=== PATIENT | male | born 1950 | race Caucasian/White ===

== ENCOUNTER 2018-11-10 12:22 | Inpatient (IN) ==
[2018-11-10] MEDS ORDERED: ONDANSETRON HCL/PF 2 MG/ML VIAL IV ONE ×2 (12:33→13:58)
--- NOTE | 2018-11-10 12:41 | ERNOTE ---
Abdominal HPI - General Chief Complaint: Abdominal Pain Time Seen by Provider: 11/10/18 12:24 Source: patient Exam Limitations: no limitations - Immun/Allergies/Home Medications Immunizatons: IMMUNIZATION HX Immunizations Up to Date Yes History of Influenza Vaccine No Allergies/Adverse Reactions: Allergies No Known Allergies Allergy (Verified 11/10/18 16:42) Home Medications: HOME MEDICATIONS Ascorbic Acid [Vitamin C] 1,000 mg PO DAILY 11/10/18 [Last Taken Unknown] Bee Pollen 550 mg PO DAILY 11/10/18 [Last Taken Unknown] - History of Present Illness Narrative: Patient started with have periumbilical abdominal pain about 9 hours ago, he vomited multiple times and is still nauseated, no diarrhea, few small BMs only. Last night at the [employer] game he had a hot dog, peanuts and later a can of soup. His only significant medical problem in the past was what sound like perforated diverticulitis treated with surgery 12 years ago. He had a colonoscopy 4? years ago which was normal per patient Date (Duration): 11/10/18 Time (Timing): 03:00 Timing: constant Quality: moderate, other - 'sore' Activities at Onset: none Modifying Factors - (Worsens): Absent: breathing, coughing, movement Associated Symptoms: Present: nausea, vomiting. Absent: headache, diarrhea- gross blood, fever/chills, heartburn Prior Abdominal Problems: Present: other Prior Treatment: Absent: recently seen, currently on antibiotics Review of Systems - Review of Systems Constitutional: Absent: recent illness, fever ENT: Absent: nose congestion, sore throat Respiratory: Absent: shortness of breath Cardiology: Absent: chest pain Gastrointestinal/Abdominal: Present: See HPI, nausea, vomiting, abdominal pain. Absent: diarrhea Genitourinary: Absent: frequency, dysuria Musculoskeletal: Absent: back pain Neurological: Absent: headache Medical History (Last Reviewed 11/10/18 @ 12:38 by Arelis Valentine MD) Hx of diverticulitis of colon Surgical History: Surgical History (Last Reviewed 11/10/18 @ 12:39 by Arelis Valentine MD) History of dental surgery Hx of abdominal surgery H/O arthroscopy of left knee Family History: Family History (Last Updated 11/10/18 @ 16:42 by Nat Allen RN) Mother Colon cancer Father Colon cancer Social History: Preferred Language Thai Do you have any restorationist or No cultural preference? Do you dip or chew tobacco hx of tobacco use Alcohol Use rarely Drug Use none No Social History Section defined Physical Exam - Physical Exam General Appearance: Present: wd/wn, alert, mild distress Respiratory: Present: no respiratory distress, normal breath sounds, no accessory muscle use, lungs clear Cardiovascular/Chest: Present: regular rate, rhythm, no murmur Gastrointestinal/Abdominal: Present: soft, tenderness - diffuse mild, max left mid to lower abdomen, abnormal bowel sounds - decreased, distended Neurological Exam: Present: alert, oriented, normal mood/affect Skin Exam: Present: normal color, warm/dry Progress - Results and Orders Patient's Lab Results:: I have reviewed the patient's lab results. - Vital Signs Patient's Vital Signs:: I have reviewed the patient's vital signs. Vital Signs: Vital Signs 11/10/18 12:25 Temperature 36.5 C Pulse Rate 71 Respiratory Rate 16 O2 Sat by Pulse Oximetry 99 - X-Ray X-Ray #1 X-Ray: abdomen - bowl obstruction Interpretation: Interp. by me - CT/Ultrasound CT/Ultrasound Narrative: CT abdomen: small bowel obstruction, see report - Progress/Reassessment Chief Complaint: Abdominal Pain Progress Note-Subjective: 11/10/18 13:26 discussed test results with patient, Xray consistent with obstruction, will get CT patient feels better after zofran, denies need for more medication 11/10/18 15:[address] finding with staff from [facility] 11/10/18 15:30 updated patient on findings and plan 11/10/18 15:33 discussed with jacquelin Owusu to admit for observation Departure Clinical Impression: Small bowel obstruction, Hyponatremia - Departure Disposition: Still a patient Condition: Stable
[2018-11-10 12:47] LABS: Hemoglobin 15.3 gm/dL (13.5-18.0); Mean Corpuscular Hemoglobin 30.6 pg (27-31); Mean Platelet Volume 8.4 fl (8-11.3); Neutrophil # 7.4 K/mm3 (1.3-6.0); Neutrophil % 90.6 % (42-75.0); Platelet Count 256 K/mm3 (150-450); Red Cell Distribution Width 12.1 % (11.5-14.0); White Blood Count 8.1 K/mm3 (4.0-10.5)
[2018-11-10 13:19] LABS: Urine Appearance Clear (CLEAR); Urine Color Yellow
[2018-11-10 13:20] LABS: Urine Amorphous Sediment Moderate - 2+ (NONE-FEW); Urine Bacteria None Seen; Urine Bilirubin Negative (NEGATIVE); Urine Blood Negative /ul (NEGATIVE); Urine Ketone 15 mg/dL (NEGATIVE); Urine Nitrite Negative (NEGATIVE); Urine Protein Negative (NEGATIVE); Urine RBC None Seen /hpf (0-5); Urine Specific Gravity 1.015 SP.GR. (1.005-1.030); Urine Urobilinogen Normal (NORMAL); Urine WBC None Seen /hpf (0-5); Urine pH 7.5 pH (5.0-7.0)
[2018-11-10] MEDS ORDERED: DIATRIZOATE MEGLUMINE, SODIUM 30 ML BTL PO ONE (13:24)
[2018-11-10 13:25] LABS: Albumin * 4.3 gm/dl (3.4-5.0); BUN/Creatinine Ratio 19.2 (9.0-21.6); Bilirubin, Total 1.2 mg/dL (0.0-1.1); Ca. Corrected For Albumin 8.9 mg/dL (8.4-10.2); Calcium * 9.5 mg/dL (7.9-10.9); Total Protein 8.1 gm/dL (6.2-8.2)
[2018-11-10] MEDS ORDERED: NORMAL SALINE 1,000 ML IV ONE (13:29)
[2018-11-10] MEDS ORDERED: PROCHLORPERAZINE EDISYLATE 5 MG/ML VIAL IV ONE (14:47)
[2018-11-10] MEDS ORDERED: KETOROLAC TROMETHAMINE 30 MG/ML VIAL IV ONE (15:56)
[2018-11-10] MEDS ORDERED: ONDANSETRON HCL/PF 2 MG/ML VIAL IV PRN (15:56)
[2018-11-10] MEDS: NORMAL SALINE 1,000 ML IV PRN (18:00)
--- NOTE | 2018-11-10 18:03 | HP ---
Chief Complaint - Chief Complaint Date of Service: 11/10/18 Time of Service: 18:03 Chief Complaint: abdominal pain History of Present Illness: Patient without ongoing medical issues presented to the ED after developing abdominal pain overnight. The pain is periumbilic, and similar to when he was diagnosed with diverticulitis several years ago, requiring surgery. He has been having some nausea, and felt like he "needed to get something out" and was trying to make himself vomit. Imaging done in the ED showed an SBO, and NG tube was placed to intermittent suction. At the time of my exam, he reports feeling somewhat better than he did on admission. He denies CP, SOB, diarrhea, dysuria, skin ulcers. He does not take prescribed medications. Medical History (Last Reviewed 11/10/18 @ 16:42 by Nat Allen RN) Hx of diverticulitis of colon Surgical History: Surgical History (Last Reviewed 11/10/18 @ 16:42 by Nat Allen RN) History of dental surgery Hx of abdominal surgery H/O arthroscopy of left knee Family History: Family History (Last Updated 11/10/18 @ 16:42 by Nat Allen RN) Mother Colon cancer Father Colon cancer Social History: Patient Lives/Resources Home Utilized Preferred Language Gibraltarian Do you have any anabaptism or No cultural preference? Smoking Status Current every day smoker Have you smoked in the past 12 No months Do you dip or chew tobacco No Alcohol Use rarely Drug Use none No Social History Section defined Review Of Systems (GEN) - Review of Systems Generalized/Overall Review: Absent: Fever Respiratory: Present: Shortness of Breath Cardiac: Present: Chest Pain, Edema Abdominal: Present: Nausea, Diarrhea. Absent: Constipation Genitourinary: Present: Dysuria Skin: Absent: Lesions Immunizations: IMMUNIZATION HX Immunizations Up to Date Yes History of Influenza Vaccine No Allergies/Adverse Reactions: Allergies Allergy/AdvReac Type Severity Reaction Status Date / Time No Known Allergies Allergy Verified 11/10/18 16:42 Home Medications: HOME MEDICATIONS Ascorbic Acid [Vitamin C] 1,000 mg PO DAILY 11/10/18 [Last Taken Unknown] Bee Pollen 550 mg PO DAILY 11/10/18 [Last Taken Unknown] Exam - Exam Vital Signs: Vital Signs - Last Taken Temp 37.8 C 11/10/18 16:34 Pulse 73 11/10/18 16:34 Resp 14 11/10/18 16:34 BP 182/94 H 11/10/18 16:34 Pulse Ox 95 11/10/18 16:34 Constitutional: Present: Alert, Oriented x3, Cooperative, No distress ENT Exam: Present: other - NG tube in place Respiratory: Present: normal breath sounds Cardiovascular/Chest: Present: regular rate, rhythm Abdomen: Present: distended, high pitched bowel sounds - on left, hypoactive - on right Extremity: Absent: lower extremity edema Eye contact: Present: cooperative, good eye contact Diagnostic Studies: Abnormal Lab Results 11/10/18 11/10/18 11/10/18 Range/Units 12:40 12:40 12:56 Neutrophils % 90.6 H (42-75.0) % Lymphocytes % 4.7 L (20-51) % Neutrophils # 7.4 H (1.3-6.0) K/mm3 Lymphocytes # 0.38 L (1.5-3.5) k/mm3 Sodium 128 L (132-142) mmol/L Plasma Sodium 129 L (130-142) mmol/L Chloride 92 L (97-106) mmol/L Random Glucose 149 H (70-110) mg/dL Total Bilirubin 1.2 H (0.0-1.1) mg/dL Alkaline Phosphatase 36 L (50-170) U/L Amorphous Sediment Moderate - 2+ H (NONE-FEW) Laboratory Results WBC 8.1 K/mm3 (4.0-10.5) 11/10/18 12:40 RBC 5.00 M/mm3 (4.7-6.0) 11/10/18 12:40 Hgb 15.3 gm/dL (13.5-18.0) 11/10/18 12:40 Hct 45.0 % (42.0-52.0) 11/10/18 12:40 MCV 90.0 fl (78-100) 11/10/18 12:40 MCH 30.6 pg (27-31) 11/10/18 12:40 MCHC 34.0 g/dl (32-36) 11/10/18 12:40 RDW 12.1 % (11.5-14.0) 11/10/18 12:40 Plt Count 256 K/mm3 (150-450) 11/10/18 12:40 MPV 8.4 fl (8-11.3) 11/10/18 12:40 Immature Gran % (Auto) 0.20 % (0.001-0.429) 11/10/18 12:40 Immature Gran # (Auto) 0.02 K/mm3 (0.000-0.0310) 11/10/18 12:40 Neutrophils % 90.6 % (42-75.0) H 11/10/18 12:40 Lymphocytes % 4.7 % (20-51) L 11/10/18 12:40 Monocytes % 3.9 % (0.0-9) 11/10/18 12:40 Eosinophils % 0.1 % (0.0-3.0) 11/10/18 12:40 Basophils % 0.5 % (0.0-1.0) 11/10/18 12:40 Nucleated RBC % 0.0 k/mm3 (0-1) 11/10/18 12:40 Neutrophils # 7.4 K/mm3 (1.3-6.0) H 11/10/18 12:40 Lymphocytes # 0.38 k/mm3 (1.5-3.5) L 11/10/18 12:40 Monocytes # 0.3 k/mm3 (0.0-1.0) 11/10/18 12:40 Eosinophils # 0.0 k/mm3 (0.0-0.7) 11/10/18 12:40 Absolute Basophils 0.0 k/mm3 (0.0-0.1) 11/10/18 12:40 Sodium 128 mmol/L (132-142) L 11/10/18 12:40 Plasma Sodium 129 mmol/L (130-142) L 11/10/18 12:40 Potassium 4.0 mmol/L (3.4-4.6) 11/10/18 12:40 Chloride 92 mmol/L (97-106) L 11/10/18 12:40 Carbon Dioxide 27.0 mmol/L (24-32.6) 11/10/18 12:40 Anion Gap 13.0 mmol/L (6.8-13.8) 11/10/18 12:40 BUN 15 mg/dL (6-23) 11/10/18 12:40 Creatinine 0.78 mg/dL (0.4-1.4) 11/10/18 12:40 Est GFR (Non-Af Amer) 106 mL/min (60-130) 11/10/18 12:40 BUN/Creatinine Ratio 19.2 (9.0-21.6) 11/10/18 12:40 Random Glucose 149 mg/dL (70-110) H 11/10/18 12:40 Calcium 9.5 mg/dL (7.9-10.9) 11/10/18 12:40 Calcium Adj for Albumin 8.9 mg/dL (8.4-10.2) 11/10/18 12:40 Total Bilirubin 1.2 mg/dL (0.0-1.1) H 11/10/18 12:40 AST 18 U/L (0-48) 11/10/18 12:40 ALT 24 U/L (19-67) 11/10/18 12:40 Alkaline Phosphatase 36 U/L (50-170) L 11/10/18 12:40 Total Protein 8.1 gm/dL (6.2-8.2) 11/10/18 12:40 Albumin 4.3 gm/dl (3.4-5.0) 11/10/18 12:40 Amylase 77 U/L (25-115) 11/10/18 12:40 Lipase 111 U/L (73-393) 11/10/18 12:40 Urine Color Yellow 11/10/18 12:56 Urine Appearance Clear (CLEAR) 11/10/18 12:56 Urine pH 7.5 pH (5.0-7.0) 11/10/18 12:56 Ur Specific Carpenter 1.015 SP.GR. (1.005-1.030) 11/10/18 12:56 Urine Protein Negative mg/dL (NEGATIVE) 11/10/18 12:56 Urine Glucose (UA) Negative mg/dL (NEGATIVE) 11/10/18 12:56 Urine Ketones 15 mg/dL (NEGATIVE) 11/10/18 12:56 Urine Blood Negative /ul (NEGATIVE) 11/10/18 12:56 Urine Nitrate Negative (NEGATIVE) 11/10/18 12:56 Urine Bilirubin Negative mg/dl (NEGATIVE) 11/10/18 12:56 Urine Urobilinogen Normal EU/dl (NORMAL) 11/10/18 12:56 Ur Leukocyte Esterase Negative /ul (NEGATIVE) 11/10/18 12:56 Urine RBC None seen /hpf (0-5) 11/10/18 12:56 Urine WBC None seen /hpf (0-5) 11/10/18 12:56 Ur Epithelial Cells 0-5 /hpf (0-5) 11/10/18 12:56 Amorphous Sediment Moderate - 2+ (NONE-FEW) H 11/10/18 12:56 Urine Bacteria None seen (NONE) 11/10/18 12:56 Urine Culture Comments No culture indicated 11/10/18 12:56 Assessment/Plan - Assessment/Plan (1) Small bowel obstruction Assessment: On CT, transition point is in the pelvis/RLQ. No massess seen. SBO likely secondary to adhesions from remote surgery. NG tube placed in the ED, to intermittent suction. He reports feeling slightly better than on arrival to the ED. If he does not have significant improvement by the morning or worsens, will obtain lactic aced level and consult surgery. Heart rate and respiratory rate are normal, but his BP is elevated. He does not have signs of an acute abdomen currently. Will remain NPO for bowel rest. He reported feeling uncomfortable thirsty, and ice chips prn have been ordered. Continue 125 cc/hr NS. until he can tolerate clear liquids. Problem: Acute (2) Hyponatremia Assessment: Sodium slightly low at 128. Will continue fluids as long as he is NPO, and will recheck BMP in the morning. Problem: Acute (3) Elevated BP without diagnosis of hypertension Assessment: He does not have HTN at baseline, but his BP is elevated currently. He asked for something to help sleep early in the evening, so he may have an element of anxiety regarding his clinical condition, which would elevated his BP. Will give 20 mg IV labetalol for persistent BP greater than 180/100, and 1 mg ativan tonight if needed. Problem: Acute
[2018-11-10] MEDS: HYDROmorphone HCL 1 MG/ML DISP.SYRIN IV PRN (20:21)
[2018-11-10] MEDS ORDERED: LORazepam 2 MG/ML DISP.SYRIN IV ONE (21:17)
[2018-11-10] MEDS ORDERED: LORazepam 2 MG/ML DISP.SYRIN ONE (22:28)
[2018-11-11] MEDS: NORMAL SALINE 1,000 ML IV PRN ×3 (01:48→18:02)
[2018-11-11] MEDS: KETOROLAC TROMETHAMINE 15 MG/ML VIAL IV PRN ×3 (04:22→23:06)
[2018-11-11] MEDS ORDERED: ACETAMINOPHEN 325 MG TABLET PO PRN (06:46)
[2018-11-11 06:47] LABS: Anion Gap 13.5 mmol/L (6.8-13.8); BUN/Creatinine Ratio 24.4 (9.0-21.6); Calcium * 8.8 mg/dL (7.9-10.9); Carbon Dioxide 27.3 mmol/L (24-32.6); Estimated Creat Clear 84.5; Potassium 3.8 mmol/L (3.4-4.6)
--- NOTE | 2018-11-11 12:48 | PN ---
Subjective - Date and Time Seen Date: 11/11/18 Time: 12:42 Subjective Narrative: Bhavesh reports feeling better. He denies abdominal pain and has improvement of appetite. No nausea or vomiting. He has NG in place on suction with dark green fluid in canister. He denies bowel movement or gas today. He reports that he had two bowel movements yesterday prior to coming to the ER. Objective - Vitals Vitals: Last Vital Signs Temp 37.0 C 11/11/18 10:25 Pulse 74 11/11/18 10:25 Resp 12 11/11/18 10:25 BP 169/85 H 11/11/18 10:25 Pulse Ox 95 11/11/18 10:25 - Abnormal Lab Findings Abnormal Lab Findings: Abnormal Lab Results 11/10/18 11/10/18 11/10/18 Range/Units 12:40 12:40 12:56 Neutrophils % 90.6 H (42-75.0) % Lymphocytes % 4.7 L (20-51) % Neutrophils # 7.4 H (1.3-6.0) K/mm3 Lymphocytes # 0.38 L (1.5-3.5) k/mm3 Sodium 128 L (132-142) mmol/L Plasma Sodium 129 L (130-142) mmol/L Chloride 92 L (97-106) mmol/L BUN/Creatinine Ratio (9.0-21.6) Random Glucose 149 H (70-110) mg/dL Total Bilirubin 1.2 H (0.0-1.1) mg/dL Alkaline Phosphatase 36 L (50-170) U/L Amorphous Sediment Moderate - 2+ H (NONE-FEW) 11/11/18 Range/Units 06:30 Neutrophils % (42-75.0) % Lymphocytes % (20-51) % Neutrophils # (1.3-6.0) K/mm3 Lymphocytes # (1.5-3.5) k/mm3 Sodium 130 L (132-142) mmol/L Plasma Sodium (130-142) mmol/L Chloride 93 L (97-106) mmol/L BUN/Creatinine Ratio 24.4 H (9.0-21.6) Random Glucose 145 H (70-110) mg/dL Total Bilirubin (0.0-1.1) mg/dL Alkaline Phosphatase (50-170) U/L Amorphous Sediment (NONE-FEW) - Exam Constitutional: Present: Alert, Oriented x3, Cooperative Respiratory: Present: lungs clear, normal breath sounds Cardiovascular/Chest: Present: regular rate, rhythm, no murmur Abdomen: Present: soft, nontender, nondistended, no rebound tenderness, no hepatospenomegaly, hypoactive Skin Exam: Present: normal color, warm/dry, no cyanosis Assessment/Plan Plan Narrative: Bhavesh is a 68 yo male with: 1) Small Bowel Obstruction with history of diverticular perforation with surgical peritoneal wash out about 10 years ago. His symptoms started acutely yesterday and appear improved with NG tube which is currently on suction. Will repeat abdominal xray today. He denies stool or flatus so I am hesitant to clamp his NG tube now. Will decide on this based on abdominal xray findings. If no evidence of bowel obstruction on xray will consider clamping tube and trying a l iquid diet this evening. If small bowel obstruction persists on xray will plan to remain on suction and re-evaluate tomorrow morning. No need for surgical intervention at this time. Will consult surgery if needed. 2) Hypertension - No prior history, blood pressures improving. This may be a stress reaction from acute illness. Will monitor. 3) Hyponatremia - Resolved with IV fluids. Continue IV fluids while he is NPO. - Problems/Diagnosis (1) Small bowel obstruction Problem: Acute (2) Hyponatremia Problem: Acute (3) Elevated BP without diagnosis of hypertension Problem: Acute
[2018-11-11] MEDS: LOSARTAN POTASSIUM 50 MG TABLET PO SCH (17:04)
[2018-11-12] MEDS: NORMAL SALINE 1,000 ML IV PRN ×3 (02:31→20:56)
[2018-11-12] MEDS: HYDROmorphone HCL 1 MG/ML DISP.SYRIN IV PRN ×3 (02:34→23:19)
[2018-11-12] MEDS: LOSARTAN POTASSIUM 50 MG TABLET PO SCH (08:18)
[2018-11-12] MEDS ORDERED: CLONIDINE HCL 0.1 MG TABLET PO ONE (14:37)
[2018-11-12] MEDS: HYDROCHLOROTHIAZIDE 25 MG TABLET PO SCH (14:55)
[2018-11-12] MEDS: FLUTICASONE PROPIONATE 120 SPRAY INHALER NS SCH (23:22)
--- NOTE | 2018-11-12 23:42 | PN ---
Subjective - Date and Time Seen Date: 11/12/18 Time: 10:00 Subjective Narrative: Reports doing well. No abdominal pain. He feels gas rumbling in abdomen but has not passed gas or stool. He feels hungry. NG tube in place and on suction. Continues to suction dark green fluid. Objective - Vitals Vitals: Last Vital Signs Temp 36.5 C 11/12/18 14:41 Pulse 83 11/12/18 17:05 Resp 16 11/12/18 14:41 BP 166/96 H 11/12/18 15:48 Pulse Ox 98 11/12/18 14:41 - Exam Constitutional: Present: Alert, Oriented x3, Cooperative ENT Exam: Present: hearing grossly normal Respiratory: Present: lungs clear, normal breath sounds Cardiovascular/Chest: Present: regular rate, rhythm, no murmur Abdomen: Present: soft, nontender, nondistended, no rebound tenderness, no hepatospenomegaly, hypoactive Skin Exam: Present: normal color, warm/dry, no cyanosis Appearance: Present: appropriate appearance, appropriate insight Eye contact: Present: cooperative, good eye contact, normal speech Thoughts: Present: normal thought pattern, no apparent hallucination Assessment/Plan Plan Narrative: Clinically improving. Repeat abdominal xray shows obstruction appears to be improving. Will clamp NG tube this morning, if doing well will advance diet to clears at lunch and keep NG in place. If tolerating clears through today will consider removing NG tube and advancing diet further. Blood pressure continues to be elevated. Will start Losartan and HCTZ and monitor. - Problems/Diagnosis (1) Small bowel obstruction Problem: Acute (2) Hyponatremia Problem: Acute (3) Elevated BP without diagnosis of hypertension Problem: Acute
[2018-11-13] MEDS ORDERED: CLONIDINE HCL 0.1 MG TABLET PO ONE (02:04)
[2018-11-13] MEDS ORDERED: CLONIDINE HCL 0.1 MG TABLET ONE (02:14)
[2018-11-13] MEDS: NORMAL SALINE 1,000 ML IV PRN ×2 (06:41→16:25)
[2018-11-13] MEDS: HYDROmorphone HCL 1 MG/ML DISP.SYRIN IV PRN ×4 (07:21→20:25)
[2018-11-13] MEDS: LOSARTAN POTASSIUM 50 MG TABLET PO SCH (08:40)
[2018-11-13] MEDS: HYDROCHLOROTHIAZIDE 25 MG TABLET PO SCH (10:09)
[2018-11-13] MEDS: hydrALAZINE HCL 20 MG/ML VIAL IV PRN ×2 (10:35→21:27)
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
[2018-11-13] MEDS: FLUTICASONE PROPIONATE 120 SPRAY INHALER NS SCH (20:25)
[2018-11-14] MEDS: HYDROmorphone HCL 1 MG/ML DISP.SYRIN IV PRN ×4 (00:35→23:30)
[2018-11-14 05:25] LABS: Anion Gap 11.9 mmol/L (6.8-13.8); BUN/Creatinine Ratio 28.8 (9.0-21.6); Calcium * 8.5 mg/dL (7.9-10.9); Carbon Dioxide 28.3 mmol/L (24-32.6); Estimated Creat Clear 99.5; Potassium 3.2 mmol/L (3.4-4.6)
[2018-11-14] MEDS: hydrALAZINE HCL 20 MG/ML VIAL IV PRN (06:51)
[2018-11-14] MEDS ORDERED: POTASSIUM CHLORIDE 20 MEQ in NORMAL SALINE 1,000 ML IV SCH ×2 (07:59→08:15)
[2018-11-14] MEDS: LOSARTAN POTASSIUM 50 MG TABLET PO SCH (08:54)
[2018-11-14] MEDS: HYDROCHLOROTHIAZIDE 25 MG TABLET PO SCH (10:41)
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
[2018-11-14] MEDS ORDERED: DILTIAZEM HCL 180 MG CAP.SR.24H PO SCH (12:45)
--- NOTE | 2018-11-14 13:06 | PN ---
Progess Note - Interim Date: 11/14/18 Time: 13:04 Narrative: 11/14/18 13:04 About 30 minutes ago case management expressed concern about discharging him due to passing no flatus or bowel movement. This is a reasonable concern, so we will hold his discharge through the afternoon and see how things go. In the meantime, we will give him a one time diltiazem dose, one of the two blood pressure meds I plan to send him home with.
[2018-11-14 14:44] LABS: Hematocrit 43.9 % (42.0-52.0); Hemoglobin 14.4 gm/dL (13.5-18.0); Mean Cell Volume 92.4 fl (78-100); Mean Corpuscular Hemoglobin 30.3 pg (27-31); Mean Corpuscular Hgb Conc 32.8 g/dl (32-36); Mean Platelet Volume 8.4 fl (8-11.3); Platelet Count 264 K/mm3 (150-450); Red Blood Count 4.75 M/mm3 (4.7-6.0); Red Cell Distribution Width 12.3 % (11.5-14.0); White Blood Count 4.7 K/mm3 (4.0-10.5)
[2018-11-14] MEDS ORDERED: DILTIAZEM HCL 5 MG/ML VIAL IV ONE (14:45)
[2018-11-14 14:48] LABS: Total Cells Counted 100
[2018-11-14 14:58] LABS: Band 8 % (0-2.0); Lymphocyte 18 % (20-51); Monocyte 7 % (0-9); Neutrophil 67 % (42-75); Neutrophil # 3.1 K/mm3 (1.3-6.0)
[2018-11-14 14:59] LABS: Platelet Estimate Normal (NORMAL); RBC Morphology Normal (NORMAL)
[2018-11-14] MEDS ORDERED: DILTIAZEM HCL 5 MG/ML VIAL IV SCH (15:00)
[2018-11-14] MEDS: POTASSIUM CHLORIDE 20 MEQ in NORMAL SALINE 1,000 ML IV SCH (15:08)
[2018-11-14] MEDS: ENALAPRILAT DIHYDRATE 1.25 MG/ML VIAL IV SCH ×2 (15:08→22:03)
[2018-11-14] MEDS ORDERED: ONDANSETRON HCL/PF 2 MG/ML VIAL IV PRN ×2 (15:08→16:35)
--- NOTE | 2018-11-14 16:47 | PN ---
Raymond Note - Interim Date: 11/14/18 Time: 16:36 Narrative: 11/14/18 16:36 Around noontime today, I thought Mr. Powell could probably go home. Nursing remove his NG tube this morning because he had not had any vomiting since yesterday morning. This morning he was not nauseated. He had no abdominal pain, and he had bowel sounds present, albeit hypoactive. He had not yet passed flatus or stool. However, when he tried to eat food for lunch, he became nauseated and didn't want anymore. Subsequently, this afternoon he vomited about 500 ML's of bilious fluid. He had chemistries this morning which showed a potassium of 3.2, and I added potassium to his IV fluids. With the emergence of these new events, I did a CBC. His white count was on the low side, however he had 8% bands. He has had no fever. His vitals remain stable, although his blood pressure remains moderately elevated. I did make him nothing by mouth, but he absolutely continually refuses to have the NG tube replaced. I explained carefully this evening about why it was very important to use an NG tube again, and that the consequences could be bad without it. At present, he is still unwilling to have the tube replaced. Because he obviously couldn't go home today due to these recent events, I readmitted into an acute bed in the hospital. Also around noontime today I called our on-call physician, Dr. Coombs, and discussed the situation with him. He agreed to see him in consultation today. I provided intravenous medication for his blood pressure, pain and nausea. We will continue his IV normal saline with added potassium at 60 ML's per hour for now. Dr. Yang is computer console operator this evening, and I will sign out to him shortly.
[2018-11-15] MEDS: ENALAPRILAT DIHYDRATE 1.25 MG/ML VIAL IV SCH ×4 (03:21→21:27)
[2018-11-15] MEDS: HYDROmorphone HCL 1 MG/ML DISP.SYRIN IV PRN ×5 (03:30→23:50)
[2018-11-15] MEDS: POTASSIUM CHLORIDE 20 MEQ in NORMAL SALINE 1,000 ML IV SCH ×2 (04:30→20:10)
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
--- NOTE | 2018-11-15 10:23 | PN ---
Dictated Progress Note - Date and Time Seen: Date: 11/15/18 Time: 08:00 - Progress Note Narrative: Vital Signs - Last Taken Temp 36.7 C 11/15/18 07:00 Pulse 79 11/15/18 07:00 Resp 16 11/15/18 07:00 BP 167/90 H 11/15/18 07:00 Pulse Ox 92 L 11/15/18 07:00 Abnormal/Pending Laboratory Last 24 HRS 11/14/18 14:30 Band Neuts % (Manual) 8 H Lymphocytes % (Manual) 18 L Lymphocytes # (Manual) 0.8 L He had significant NG tube output last night, however he has also started to pass large volumes of gas and states he is ready to have a bowel movement. The nasogastric tube was withdrawn several centimeters and resecured. A flat and upright abdomen will be obtained to assess the new tube position and also reevaluate the gas pattern. Case discussed with Dr. Rebecca Diez. Will continue to follow the patient
--- NOTE | 2018-11-15 11:00 | PN ---
Progess Note - Interim Date: 11/15/18 Time: 10:59 Narrative: 11/15/18 10:59 I personally viewed the plain xrays from this morning and read Dr. Dyson's interpretation. GILBERTO stallings seems to be in satisfactory position.
--- NOTE | 2018-11-15 17:58 | PN ---
Dictated Progress Note - Date and Time Seen: Date: 11/15/18 Time: 17:55 - Progress Note Narrative: Vital Signs - Last Taken Temp 37.2 C 11/15/18 14:49 Pulse 86 11/15/18 15:31 Resp 16 11/15/18 14:49 BP 167/84 H 11/15/18 15:31 Pulse Ox 95 11/15/18 14:49 He feels much better. His abdomen is softer and he has had 2 bowel movements today. He states he now feels like drinking something where he did not before. Will allow clear liquid supper and administer 2 Dulcolax tablets, with clamping of the NG tube for 2 hours and then return to low intermittent suction overnight. We will repeat this process with a clear liquid breakfast tomorrow. Will continue to follow the patient
[2018-11-15] MEDS ORDERED: BISACODYL 5 MG TABLET.DR PO ONE (18:00)
[2018-11-16] MEDS: HYDROmorphone HCL 1 MG/ML DISP.SYRIN IV PRN (03:50)
[2018-11-16] MEDS: ENALAPRILAT DIHYDRATE 1.25 MG/ML VIAL IV SCH ×2 (03:51→09:14)
[2018-11-16 06:49] LABS: Anion Gap 15.5 mmol/L (6.8-13.8); BUN/Creatinine Ratio 34.8 (9.0-21.6); Calcium * 8.4 mg/dL (7.9-10.9); Carbon Dioxide 27.5 mmol/L (24-32.6); Estimated Creat Clear 105.3
--- NOTE | 2018-11-16 09:30 | PN ---
Dictated Progress Note - Date and Time Seen: Date: 11/16/18 Time: 09:29 - Progress Note Narrative: Vital Signs - Last Taken Temp 37.1 C 11/16/18 07:00 Pulse 90 11/16/18 09:14 Resp 20 11/16/18 07:00 BP 176/89 H 11/16/18 09:14 Pulse Ox 98 11/16/18 07:00 Abnormal/Pending Laboratory Last 24 HRS 11/16/18 06:00 Anion Gap 15.5 H BUN 24 H BUN/Creatinine Ratio 34.8 H He states he feels much better. He wants to try something to eat. Every time he eats he moves his bowels. He has been passing gas. His abdomen is soft and nontender. Will DC NG and trial full liquids with tentative discharge later today if tolerated.
[2018-11-16] MEDS ORDERED: DILTIAZEM HCL 120 MG CAP.SR.24H PO SCH (10:15)
[2018-11-16] MEDS ORDERED: LOSARTAN POTASSIUM 50 MG TABLET PO SCH (10:15)
[2018-11-16] MEDS: POTASSIUM CHLORIDE 20 MEQ in NORMAL SALINE 1,000 ML IV SCH (10:59)
--- NOTE | 2018-11-16 11:34 | DS ---
(1) Elevated BP without diagnosis of hypertension Problem: Chronic (2) Small bowel obstruction Problem: Resolved Description of Stay: 68-year-old male with a past medical history of diverticulitis presents with complaints of abdominal pain which found to have a small bowel obstruction on CT scan. SBO likely secondary to adhesions from previous surgery. He was admitted for management. General surgery was consulted, he was placed n.p.o., NG tube was placed. SBO resolved and he was advanced to a liquid diet. He tolerated well with no nausea vomiting or abdominal pain. His blood pressure was elevated and he was started on several IV blood pressure medications without much improvement. Once his diet was advanced we started him on oral diltiazem and losartan his blood pressure. Patient will go home today. With good improvement. Procedures Performed: none Results and Findings: Lab Pending Results 11/10/18 12:40: WBC 8.1, RBC 5.00, Hgb 15.3, Hct 45.0, MCV 90.0, MCH 30.6, MCHC 34.0, RDW 12.1, Plt Count 256, MPV 8.4, Immature Gran % (Auto) 0.20, Immature Gran # (Auto) 0.02, Neutrophils % 90.6 H, Lymphocytes % 4.7 L, Monocytes % 3.9, Eosinophils % 0.1, Basophils % 0.5, Nucleated RBC % 0.0, Neutrophils # 7.4 H, Lymphocytes # 0.38 L, Monocytes # 0.3, Eosinophils # 0.0, Absolute Basophils 0.0 11/10/18 12:40: Sodium 128 L, Plasma Sodium 129 L, Potassium 4.0, Chloride 92 L, Carbon Dioxide 27.0, Anion Gap 13.0, BUN 15, Creatinine 0.78, Est GFR (Non-Af Amer) 106, BUN/Creatinine Ratio 19.2, Random Glucose 149 H, Calcium 9.5, Calcium Adj for Albumin 8.9, Total Bilirubin 1.2 H, AST 18, ALT 24, Alkaline Phosphatase 36 L, Total Protein 8.1, Albumin 4.3, Amylase 77, Lipase 111 11/10/18 12:56: Urine Color Yellow, Urine Appearance Clear, Urine pH 7.5, Ur Specific [place] 1.015, Urine Protein Negative, Urine Glucose (UA) Negative, Urine Ketones 15, Urine Blood Negative, Urine Nitrate Negative, Urine Bilirubin Negative, Urine Urobilinogen Normal, Ur Leukocyte Esterase Negative, Urine RBC None seen, Urine WBC None seen, Ur Epithelial Cells 0-5, Amorphous Sediment Moderate - 2+ H, Urine Bacteria None seen, Urine Culture Comments No culture indicated 11/11/18 06:30: Sodium 130 L, Plasma Sodium 131, Potassium 3.8, Chloride 93 L, Carbon Dioxide 27.3, Anion Gap 13.5, BUN 21, Creatinine 0.86, Est GFR (Non-Af Amer) 95, BUN/Creatinine Ratio 24.4 H, Random Glucose 145 H, Calcium 8.8 11/14/18 05:10: Sodium 131 L, Plasma Sodium 132, Potassium 3.2 L, Chloride 94 L, Carbon Dioxide 28.3, Anion Gap 11.9, BUN 21, Creatinine 0.73, Est GFR (Non-Af Amer) 114, BUN/Creatinine Ratio 28.8 H, Random Glucose 137 H, Calcium 8.5 11/14/18 14:30: WBC 4.7, RBC 4.75, Hgb 14.4, Hct 43.9, MCV 92.4, MCH 30.3, MCHC 32.8, RDW 12.3, Plt Count 264, MPV 8.4, Neutrophils % (Manual) 67, Band Neuts % (Manual) 8 H, Lymphocytes % (Manual) 18 L, Monocytes % (Manual) 7, Neutrophils # (Manual) 3.1, Lymphocytes # (Manual) 0.8 L, Monocytes # (Manual) 0.3, Platelet Estimate Normal, RBC Morphology Normal 11/16/18 06:00: Sodium 139, Plasma Sodium 139, Potassium 4.0 D, Chloride 100, Carbon Dioxide 27.5, Anion Gap 15.5 H, BUN 24 H, Creatinine 0.69, Est GFR (Non- Af Amer) 122, BUN/Creatinine Ratio 34.8 H, Random Glucose 109, Calcium 8.4 Discharge Location: Home Disposition: Home self-care Condition: Good Discharge Activity: Activity as tolerated Discharge Diet: Full Liquids Referrals: Venkat Anna MD [Primary Care Provider] - Problem Oriented Discharge Instructions to Patient/Family: Small Bowel Obstruction, [id number] Additional Patient Instructions (free text): -Please make TCM appointment unless correction discharge. Thank you! Gail @ ext:[phone]. I would like to see him next Sunday. Follow up with Dr. Clifford on 11-20-18 at 2:15pm. Please call if there are any problems or questions prior to that. I did explain to him that this current problem may be recurrent. Prescriptions (Any new or edited meds): Diltiazem HCl [Diltiazem 24Hr ER] 120 mg PO QAM #30 cap.er.24h Losartan Potassium 50 mg PO QAM #30 tab Complete Home Medications List: Complete Home Medication List: Ascorbic Acid [Vitamin C] 1,000 mg PO DAILY 11/10/18 Bee Pollen 550 mg PO DAILY 11/10/18 Acetaminophen [Tylenol] 325 mg PO Q6H PRN tab 11/14/18 Diltiazem HCl [Diltiazem 24Hr ER] 120 mg PO QAM #30 cap.er.24h 11/14/18 Losartan Potassium 50 mg PO QAM #30 tab 11/14/18 Diltiazem HCl [Cardizem Cd] 120 mg PO Q24H cap.sr.24h 11/16/18 Losartan Potassium [Cozaar] 50 mg PO DAILY tablet 11/16/18
[2018-11-16 13:42] VITALS: BP 160/82
== END 2018-11-16 13:50 | disposition home or self-care (01) | DRG 389 ==
LOC: ER 12:22 → MS 15:40
PROVIDERS: ADMIT Family Medicine; ATTEND Allergy & Immunology
CPT/HCPCS: 36415; 71010; 71045; 74019; 74020; 74177; 80048; 80053; 81001; 82150; 83690; 85007; 85025; 96361; 96374; 96375; 99284; J2405; Q9967